=== PATIENT | female | born 1975 | race Caucasian/White ===

== ENCOUNTER 2017-10-27 11:29 | Day surgery (SDC) | payer OTHER ==
[2017-10-22 16:00] VITALS: BMI 27.3
[2017-10-27] MEDS ORDERED: oxyCODONE HCL 10 MG SUSTAINED ACTING TABLET PO STA (12:02)
[2017-10-27] MEDS ORDERED: methylPREDNISolone ACET (DEPO) 40 MG/1 ML VIAL ONE (12:46)
[2017-10-27] MEDS ORDERED: THROMBIN (BOVINE) 5,000 UNIT VIAL TP ONE ×3 (12:46→14:32)
[2017-10-27] MEDS ORDERED: LIDOCAINE 1%/EPI 1:100000 (20 ML MULTI DOSE VIAL) ONE (12:46)
[2017-10-27] MEDS ORDERED: MIDAZOLAM HCL 2 MG/2 ML SINGLE DOSE VIAL ONE (13:09)
[2017-10-27] MEDS ORDERED: DEXAMETHASONE SOD PHOSPHATE 4 MG/1 ML VIAL ONE (13:10)
[2017-10-27] MEDS ORDERED: BUPIVACAINE HCL/PF (5 MG/ML) 30 ML VIAL IJ ONE (13:11)
[2017-10-27] MEDS ORDERED: SODIUM CHLORIDE 0.9% P/F 10 ML VIAL IJ ONE ×2 (14:12→14:14)
[2017-10-27] MEDS ORDERED: ceFAZolin SODIUM 1 GM VIAL ONE (14:13)
[2017-10-27] MEDS ORDERED: oxyCODONE HCL 5 MG TABLET PO PRN (15:42)
[2017-10-27] MEDS ORDERED: ONDANSETRON 4 MG/2 ML VIAL IVPUSH PRN (15:42)
--- NOTE | 2017-10-27 15:59 | OP ---
Operative Note - Note: Operative Date: 10/27/17 Pre-Operative Diagnosis: lumbar stenosis, L4-L5 herniated disc Operation: laminectomy of L4-L5 with microdiscectomy Surgeon: Herbie Peterson Cnc Operator: Mirna Clemons Anesthesiologist/ENVIRONMENTAL SCIENTISTS: Minh Zayas Anesthesia: Spinal Specimens Removed: disc Estimated Blood Loss (mls): 30 Fluid Volume Replaced (mls): 800 Operative Report Dictated: Yes
--- NOTE | 2017-10-27 16:00 | SURG ---
Surgery Is Support Analyst Note Is Support Analyst: Mirna Clemons PA-C Date of Service: 10/27/17 Diagnosis: lumbar stenosis L4-L5, herniated disc Procedure: laminectomy of L4-L5 with microdisectomy I was present for the entirety of the operative procedure. For further detail, please refer to operative report. Visit type - Case Type Case Type: Scheduled - Emergency Emergency Visit: No - New patient This patient is new to me today: Yes Date on this admission: 10/27/17
[2017-10-27 16:52] VITALS: TEMP 98.2
[2017-10-27 17:28] VITALS: BP 123/80; PULSE 81
--- NOTE | 2017-10-28 07:37 | OP ---
DATE OF OPERATION: 10/27/2017 PREOPERATIVE DIAGNOSIS: Spinal stenosis at L4-5. POSTOPERATIVE DIAGNOSIS: Spinal stenosis at L4-5. PROCEDURE PERFORMED: Laminectomy, L4-5. SURGEON: Herbie Peterson MD WAREHOUSE STOCK CLERK: OMAIRA Hernandez ESTIMATED BLOOD LOSS: 50 mL INTRAVENOUS FLUIDS: Per Anesthesia. ANESTHESIA: Spinal/TLIP. COMPLICATIONS: None. DISPOSITION: Patient brought to the PACU in stable condition. INDICATIONS FOR SURGERY: The patient is a 42-year-old female who has been suffering from pain from her back down her right leg. X-rays and MRI were completed which noted that she had a herniated disk at L4-[address] to spinal stenosis at that level. She had gone through an exhaustive course of treatment for this, which included medications, physical therapy as well as injections. Unfortunately, her pain continued to persist despite all this. At this point, risks, benefits, and alternatives were discussed, and the patient consented to surgery. DESCRIPTION OF PROCEDURE: Patient was brought to the operating room by the anesthesia staff. After appropriate patient identification was performed, spinal anesthesia was given along with a TLIP block. The patient was able to position herself prone onto the OR table and avoid bony prominences. Two needles were placed into her back to mickie off the L5-S1 segment. X-ray was taken to confirm this as correct. [place] were removed, and 10 mL of lidocaine with epinephrine were injected into her back at this time. Her back was prepped and draped in a sterile manner. At this point, a timeout was completed. An incision was made from the top of L4 down to the bottom of L5. Dissection was carried down to the fascia. Fascia was split open at this time. The appropriate retractors were then placed in. A spinal needle was placed onto the L4 lamina to mickie off the L4-5 level. An x-ray was taken to confirm this as correct. The needle was removed, and the interspinous ligament at L4-5 was removed. The microscope was brought in. Portion of the L5-S1 spinous process was removed. Portions of the L4-5 lamina were removed. The flavum was identified, was removed. The thecal sac was mobilized medially. Disk herniation was noted at this time. It was removed at this time. By the end of the procedure, the L5 nerve root appeared to be well decompressed. All bleeding was well controlled at this time. Steroid was placed over the nerve root. FloSeal was placed over that. The fascia was closed with a No. 1 Vicryl suture. Subcutaneous tissues were closed with 2-0 Vicryl suture. Skin was closed with 3-0 Monocryl suture. Dermabond was applied. Steri-Strips were applied. A sterile dressing was applied. Patient was placed supine on the OR bed and brought to the PACU in stable condition. Deric MONTANO/[id number]
--- NOTE | 2017-10-29 12:46 | PATH ---
Surgical Pathology Report Patient Name: SANGEETHA SALDAÑA [facility]. Rec. #: [id number] /Age/Gender: 1975 (Age: 42) / F Account: [id number] [facility] Taken: 10/27/2017 Received: 10/27/2017 Reported: 10/29/2017 Physicians: Herbie Peterson M.D. Specimen(s) Received DISC L4-5 Clinical History Spinal stenosis Final Diagnosis L4-5 DISC, LAMINECTOMY: CARTILAGE WITH DEGENERATIVE CHANGES. Electronically Signed Laura Campbell M.D. Gross Description Received in formalin labeled "L4-5 disc," is a 2.5 x 2.4 x 0.3 cm aggregate of melo fragments of fibrocartilaginous tissue. A customer relations representative portion is submitted in one cassette. No DL10/28/201710/28/2017
== END 2017-10-27 17:27 | disposition home or self-care (01) ==
LOC: FASU 11:29
PROVIDERS: ATTEND Orthopaedic Surgery Orthopaedic Surgery of the Spine
PROC: 01NB0ZZ Release Lumbar Nerve, Open Approach (ICD-10-PCS; principal; 2017-10-27 14:24)
DX: M48.061 Spinal stenosis, lumbar region without neurogenic claudication (principal)
CPT/HCPCS: 72100-TC-FY; 84703; 88304-TC

== ENCOUNTER 2017-12-25 11:25 | Day surgery (SDC) | payer OTHER ==
[2017-12-23 15:45] VITALS: BMI 28.1
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
--- NOTE | 2017-12-25 11:22 | OP ---
DATE OF OPERATION: 12/25/2017 PREOPERATIVE DIAGNOSIS: Seroma. POSTOPERATIVE DIAGNOSIS: Cerebrospinal fluid collection. PROCEDURE PERFORMED: 1. Revision laminectomy. 2. Repair of dural tear. SURGEON: Herbie Peterson MD MINE MOTOR ENGINEER: OMAIRA Hernandez ESTIMATED BLOOD LOSS: 50 mL. IV FLUIDS: Per Anesthesia. ANESTHESIA: General. FINDINGS: 1. CSF fluid. 2. Dural tear repaired with 6-0 Nurolon suture. INDICATIONS FOR SURGERY: The patient is a 42-year-old female who I had performed a microdiscectomy on. She had done well from the surgery and then 4 weeks later she began to have swelling in her back along with pain. We ordered an MRI, which showed a large fluid collection. The patient denied any significant headaches, but she did have some pain from the swelling. I told the patient that she had a possible seroma versus possible CSF fluid collection. The patient was asymptomatic in terms of dural leakage. I told her the different options for treating this included draining the fluid in the office versus taking her to the operating room. I told her that in the operating room this would be a more controlled, sterile setting, and I would recommend that we explore the wound. We had talked about the risks and benefits of a needle aspiration versus a surgical exploration. Risks, benefits, and alternatives were discussed, and the patient consented to surgery. DESCRIPTION OF PROCEDURE: The patient was brought to the operating room by the Anesthesia staff. After appropriate patient identification was performed, general anesthesia was administered. The patient was positioned prone onto the Angelo frame with all areas and bony prominences well padded at this time. Her back was prepped and draped in a sterile manner. At this point, a time-out was completed. The previous incision was opened up. In opening up the incision, clear fluid was noted. The dissection was performed down to the lamina, and retractors were placed in. Multiple passes for irrigation were noted at this time. The microscope was brought in. An exploration was performed of the dura. On the anterolateral edge of the dura, she was noted to have a dural tear with a very small leakage. At that point, we made a decision to place a 6-0 Prolene suture. After that, the leakage stopped. Multiple Valsalva maneuvers noted. No leakage of fluid. A Duragen patch was placed. DuraSeal was placed on top of that. The fascia was closed with a No. 1 Vicryl suture. The subcutaneous tissue was closed with 2-0 Vicryl suture. The skin was closed with 3-0 Monocryl suture. Dermabond was applied. Steri-Strips w4ere applied. A sterile dressing was applied. The patient was placed supine on the OR bed, extubated in the OR, and brought to the PACU in stable condition. Deric MONTANO/[id number]
[~2017-12-25 11:25] MED LIST: BUPIVACAINE HCL 0.25% 125 MG/50 ML VIAL ONE; BUPIVACAINE HCL/PF 0.25% (2.5MG/ML) 10 ML VIAL IJ ONE; DESFLURANE GAS 240 ML BOTTLE IH ONE; DEXAMETHASONE SOD PHOSPHATE 4 MG/1 ML VIAL ONE; GELATIN SPONGE,ABSORBABLE 1 GM PACKET TP ONE; GLYCOPYRROLATE 0.2 MG/1 ML VIAL ONE; KETOROLAC TROMETHAMINE 30 MG/1 ML VIAL ONE; LACTATED RINGERS SOLUTION 1,000 ML IV SCH; LIDOCAINE 1%/EPI 1:100000 (20 ML MULTI DOSE VIAL) ONE; LIDOCAINE HCL/PF 2% SDV 5ML VIAL ONE; MIDAZOLAM HCL 2 MG/2 ML SINGLE DOSE VIAL ONE; NEOSTIGMINE METHYLSULFATE 0.5 MG/ML - 10 ML MDV ONE; ONDANSETRON 4 MG/2 ML VIAL IVPUSH PRN; ONDANSETRON 4 MG/2 ML VIAL ONE; PROPOFOL 20 ML ONE; ROCURONIUM BROMIDE 50 MG/5 ML VIAL ONE; SODIUM CHLORIDE 0.9% P/F 10 ML VIAL IJ ONE; THROMBIN (BOVINE) 5,000 UNIT VIAL TP ONE; ceFAZolin SODIUM 1 GM VIAL ONE; oxyCODONE HCL 10 MG SUSTAINED ACTING TABLET PO ONE; oxyCODONE HCL 5 MG TABLET PO ONE
[2017-12-25] MEDS ORDERED: ACETAMINOPHEN/CAFFEINE/BUTALBITAL 1 TAB PO PRN (11:30)
[2017-12-25] MEDS ORDERED: LACTATED RINGERS SOLUTION 1,000 ML IV SCH (11:30)
[2017-12-25 11:50] VITALS: TEMP 98.2
[2017-12-25 13:51] VITALS: BP 110/66; PULSE 82
[2017-12-25] MEDS ORDERED: oxyCODONE HCL 5 MG TABLET PO PRN (13:54)
[2017-12-25] MEDS ORDERED: ACETAMINOPHEN 325 MG TABLET (FP) PO SCH (14:00)
[2017-12-25] MEDS ORDERED: DOCUSATE SODIUM 100 MG CAPSULE (FP) PO SCH ×2 (14:00→22:00)
[2017-12-25] MEDS ORDERED: traMADol HCL 50 MG TABLET PO SCH (14:00)
--- NOTE | 2017-12-25 14:06 | OP ---
Operative Note - Note: Operative Date: 12/25/17 Pre-Operative Diagnosis: cerebrospinal fluid collection Operation: primary repair of durotomy/revision laminectomy Surgeon: Herbie Peterson [employer] Teacher: Mirna Clemons Anesthesia: General Estimated Blood Loss (mls): 5 Fluid Volume Replaced (mls): 750 Operative Report Dictated: Yes
--- NOTE | 2017-12-25 14:39 | SURG ---
Surgery Squirrel Man Note Squirrel Man: Mirna Clemons PA-C Date of Service: 12/25/17 Diagnosis: cerebrospinal fluid collection Procedure: revision of laminectomy/primary repair of dural tear I was present for the entirety of the operative procedure. For further detail, please refer to operative report. Visit type - Case Type Case Type: Scheduled - Emergency Emergency Visit: No - New patient This patient is new to me today: Yes Date on this admission: 12/25/17
[2017-12-25] MEDS ORDERED: CEFAZOLIN 1 GM/D5W 1 GRAM/50 ML BAG IVPB SCH (16:00)
[2017-12-25] MEDS ORDERED: DULoxetine HCL 20 MG CAPSULE.DR (FP) PO SCH (22:00)
== END 2017-12-25 16:43 | disposition home or self-care (01) ==
LOC: FASUSAT 11:25 → FM/S 13:44 → FASUSAT 16:43
PROVIDERS: ATTEND Orthopaedic Surgery Orthopaedic Surgery of the Spine
PROC: 00QT0ZZ Repair Spinal Meninges, Open Approach (ICD-10-PCS; principal; 2017-12-25 08:30)
DX: G96.11 Dural tear (principal); G96.0 Cerebrospinal fluid leak
CPT/HCPCS: 84703; 94760